=== PATIENT | male | born 1975 | race Caucasian/White ===

== ENCOUNTER 2016-08-08 19:40 | Emergency (ER) | payer MEDICAID ==
[~2016-08-08] VITALS: Ht 180.3 cm; Wt 75.7 kg
[2016-08-08] MEDS ORDERED: ONDANSETRON ODT 4 MG ONE (19:57)
[2016-08-08] MEDS ORDERED: KETOROLAC 30 MG/1 ML ONE (19:57)
[2016-08-08] MEDS ORDERED: KETOROLAC 30 MG/1 ML IM ONE (20:00)
[2016-08-08] MEDS ORDERED: ONDANSETRON ODT 4 MG PO ONE (20:00)
[2016-08-08 20:16] LABS: BLOOD UREA NITROGEN 19 mg/dL (7-18)
[2016-08-08 20:54] VITALS: BP 125/74
== END 2016-08-08 21:31 | disposition home or self-care (01) ==
LOC: ED 21:15
DX: R10.9 Unspecified abdominal pain (principal); M54.5 Low back pain; Z90.49 Acquired absence of other specified parts of digestive tract
CPT/HCPCS: 36415; 74176; 80048; 81003; 82040; 85025; 99285

== ENCOUNTER 2017-05-06 06:40 | Emergency (ER) | payer MEDICAID ==
[~2017-05-06] VITALS: Ht 180.3 cm; Wt 87.3 kg
[2017-05-06 06:48] VITALS: BP 146/88
== END 2017-05-06 07:44 | disposition home or self-care (01) ==
LOC: ED 07:37
DX: S20.211A Contusion of right front wall of thorax, initial encounter (principal); M79.1 Myalgia; W18.49XA Other slipping, tripping and stumbling without falling, initial encounter; Y93.89 Activity, other specified; Y92.89 Other specified places as the place of occurrence of the external cause; Y99.8 Other external cause status
CPT/HCPCS: 99283

== ENCOUNTER 2020-02-03 21:52 | Emergency (ER) | payer MEDICAID ==
--- NOTE | 2020-02-03 22:10 | NUR ---
pt bib remsa/rpd for sa by hanging per ems he was had rope to hang, but did not attempt. pt reported drinking 1/2 pint fireball. pt upset about having to hang over iwatch, keys, and phone. explained poc, room secured. pt given water.
--- NOTE | 2020-02-03 23:12 | NUR ---
ua collected and taken to lab, pt refusing any needle sticks, aware, kashif lei aware. 2 bags belonings locked up with primary rn shailesh
[2020-02-03] MEDS: LORazepam 1MG TABLET PO ONE ×2 (23:26→23:29)
[2020-02-03] MEDS ORDERED: LORazepam 1MG TABLET ONE (23:26)
--- NOTE | 2020-02-03 23:30 | NUR ---
PT RESTING IN ROOM. SITTER AT DOOR. NO ACUTE DISTRESS NOTED. WILL CONTINUE TO MONITOR.
--- NOTE | 2020-02-03 23:31 | NUR ---
PT REFUSED ATIVAN
[2020-02-03 23:37] LABS: AMPHETAMINE SCREEN, URINE Negative (Negative); BARBITURATE SCREEN, URINE Negative (Negative); BENZODIAZEPINE SCREEN, URINE Negative (Negative); CANNABINOID SCREEN, URINE Positive (Negative); COCAINE SCREEN, URINE Negative (Negative); METHADONE SCREEN, URINE Negative (Negative); OPIATE SCREEN, URINE Negative (Negative)
--- NOTE | 2020-02-04 00:17 | NUR ---
PT REPORTS HE WAS FEELING SI TONIGHT AFTER DRINKING ETOH AND WAS OUTSIDE WITH A ROPE TO HANG HIMSELF AND THE NEIGHBORS CALLED EMS. PT IS WORRIED HE WILL LOSE HIS JOB. "I DON'T WANT TO BE HOMELESS AGAIN." PT HAS A TWO DAUGHTERS AT HOME, 2 YEARS OLD AND 4 MONTHS OLD WITH HIS . PT REPORTS HOME STRESS MADE HIM FEEL SI. VS STABLE. NO ACUTE DISTRESS NOTED. PT REFUSING LABS. SITTER AT DOOR. WILL CONTINUE TO MONITOR.
--- NOTE | 2020-02-04 00:51 | NUR ---
PT RESTING IN ROOM. NO ACUTE DISTRESS. SITTER AT DOOR.
--- NOTE | 2020-02-04 02:08 | NUR ---
TWO BAGS OF BELONGINGS LOCKED UP. PHONE, EAR BUDS, TWO RINGS, NECKALCE, AND WATCH LOCKED UP WITH SECURITY.
--- NOTE | 2020-02-04 02:12 | NUR ---
REPORT GIVEN TO KAYLA MUELLER
--- NOTE | 2020-02-04 04:31 | NUR ---
PT RESTING IN BED, PT IN SI SECURED ROOM WITH SITTER AT DOOR. PT DENIED ANY WANTS OR NEEDS AT THIS TIME
--- NOTE | 2020-02-04 05:20 | NUR ---
PT REFUSED BLOOD LAB DRAW FOR 3RD TIME +.
--- NOTE | 2020-02-04 06:42 | NUR ---
REC'D REPORT FROM KAYLA MUELLER. PT RESTING IN BED. SITTER AT DOOR.
--- NOTE | 2020-02-04 07:15 | NUR ---
report from nightshift. patient was apparently uncooperative for labs and "letting him rest". no bloodwork done. will reassess patient. meal ordered. in bed. care assumed.
--- NOTE | 2020-02-04 07:38 | NUR ---
TALKED TO PATIENT, AND HELPED HIM UNERSTAND THAT BLOODWORK NEEDED TO MEDICALLY CLEAR HIM IF HE IS TRYING TO LEAVE. EXPLAINED THAT HE WILL THEN TALK TO MENTAL HEALTH WHO CAN CONTINUE HOLD OR POSSIBLY DROP IT, BUT THAT IF HE WAS INDEED TRYING TO HANG HIMSELF THAT MAYBE HE NEEDS TO STAY FOR HIS HEALTH/SAFETY; SHOWS UNDERSTANDING. BLOOD DRAWN. WATER GIVEN. PATIENT COOPERATIVE, LETTING HIM USE HIS PHONE WITH UNDERSTANDING THAT IF HE GETS ANGRY/COMBATIVE THAT IT WILL BE TAKEN AWAY. HE STATES HE IS HAVING MARITAL PROBLEMS AND JUST SAD/DEPRESSED LATELY BUT THAT HE WAS DRUNK AND USUALLY DOESN'T DRINK AND MADE POOR DECISIONS.
[2020-02-04 07:43] LABS: BASOPHILS % (AUTO) 1 % (0-1); EOSINOPHILS % (AUTO) 2 % (1-7); LYMPHOCYTES % (AUTO) 33 % (22-44); MEAN CORPUSCULAR HEMOGLOBIN 31.2 pg (27.5-34.5); MEAN CORPUSCULAR HGB CONC 34.7 g/dL (33.2-36.2); MEAN PLATELET VOLUME 6.7 fL (7.4-10.4); MONOCYTES % (AUTO) 6 % (2-9); NEUTROPHILS % (AUTO) 58 % (42-75); PLATELET COUNT 396 x10^3/uL (130-400); RED BLOOD COUNT 4.99 x10^6/uL (4.38-5.82); RED CELL DISTRIBUTION WIDTH 13.5 % (9.4-14.8)
[2020-02-04 07:45] LABS: MD NO
[2020-02-04 07:54] LABS: ALBUMIN 4.2 g/dL (3.4-5.0); ANION GAP 4 mmol/L (5-15); CALCIUM 8.7 mg/dL (8.5-10.1); CHLORIDE 108 mmol/L (98-107)
[2020-02-04 08:07] LABS: ALANINE AMINOTRANSFERASE 33 U/L (12-78); ALKALINE PHOSPHATASE 82 U/L (45-117); BILIRUBIN,TOTAL 0.8 mg/dL (0.2-1.0); CREATININE 1.17 mg/dL (0.7-1.3); SALICYLATE LEVEL 2.9 mg/dL (2.8-20.0); TOTAL PROTEIN 7.7 g/dL (6.4-8.2)
--- NOTE | 2020-02-04 08:07 | NUR ---
[facility] [phone]
--- NOTE | 2020-02-04 08:32 | NUR ---
BREAKFAST GIVEN, ATE ALL. PATIENT HAS PHONE, CALM AND "FEELS BETTER"
--- NOTE | 2020-02-04 09:33 | NUR ---
PATIENT CALM AND RESTING
--- NOTE | 2020-02-04 11:07 | NUR ---
up to bathroom, no issues. back in bed, sitter outside room
--- NOTE | 2020-02-04 12:16 | NUR ---
ate lunch. talking to mental health
--- NOTE | 2020-02-04 14:04 | NUR ---
patient sleeping quietly. trying to see if patient discharge or stay, will contact shayna
--- NOTE | 2020-02-04 15:19 | NUR ---
discussed with Law MD about discharge for patient.
[2020-02-04 15:26] VITALS: BP 144/78
--- NOTE | 2020-02-04 15:27 | NUR ---
discharge reviewed shows understanding.
== END 2020-02-04 15:49 | disposition home or self-care (01) ==
LOC: ED 23:10
DX: G31.2 Degeneration of nervous system due to alcohol (principal); R45.851 Suicidal ideations; F17.210 Nicotine dependence, cigarettes, uncomplicated
CPT/HCPCS: 36415; 80053; 80299; 80307; 80320; 80329; 84443; 85025; 99283; G0480